=== PATIENT | male | born 1980 | race African-American/Black ===

== ENCOUNTER 2023-11-07 07:22 | Emergency (ER) | payer MEDICAID ==
[~2023-11-07] VITALS: Ht 182.9 cm; Wt 69.0 kg
[2023-11-07 07:35] VITALS: O2SAT 98
[2023-11-07 08:33] LABS: INR 1.2
[2023-11-07 08:38] LABS: DIFFERENTIAL COMMENT 1; MEAN CORPUSCULAR HEMOGLOBIN 32.2 pg (28.0-32.0); MEAN CORPUSCULAR HGB CONC 33.1 g/dL (31.0-37.0); MEAN CORPUSCULAR VOLUME 97.3 fL (80.0-94.0); MEAN PLATELET VOLUME 9.5 fl (7.4-10.4); PLATELET 278 x1000/uL (130-400); RED CELL DISTRIBUTION WIDTH 13.1 % (11.6-14.6); WHITE BLOOD COUNT 12.7 x1000/uL (4.5-11.0)
[2023-11-07 08:41] LABS: HEMATOCRIT. 60.3 % (42.0-52.0)
[2023-11-07 08:43] LABS: AMMONIA < 10 uMol/L (<32)
[2023-11-07] MEDS: SODIUM CHLORIDE 0.9% 1,000 ML IV ONE (08:58)
[2023-11-07 09:05] LABS: LACTIC ACID 3.7 mmol/L (0.4-2.0)
[2023-11-07] MEDS: SODIUM CHLORIDE 0.9% 1000ML BAG (SEPSIS BOLUS) IV ONE (09:22)
[2023-11-07] MEDS: PIPERACILLIN/TAZO 3.375G/50ML 50 ML IV ONE (09:24)
[2023-11-07 09:38] LABS: BG BASE EXCESS 1.3 mmol/L (-2.0-2.0); BG DEOXYHEMOGLOBIN 2.6 % (0.0-5.0); BG FRACTION INSPIRED OXYGEN 21; BG HCO3 ACT 27.8 mmol/L (22.0-26.0); BG METHEMOGLOBIN 2.1 % (0.0-1.5); BG OXYGEN SATURATION 97.3 % (92.0-98.5); BG OXYHEMOGLOBIN 95.3 % (94.0-97.0); BG PCO2 48.9 mmHg (35.0-45.0); BG PH 7.372 (7.350-7.450); BG PO2 87.6 mmHg (75.0-100.0); BG SAMPLE SITE RIGHT BRACHIAL; BG TOTAL HEMOGLOBIN 21.5 g/dL (12.0-18.0); BG VENT MODE ROOM AIR
[2023-11-07 09:39] LABS: PLATELET ESTIMATE NORMAL
[2023-11-07 09:48] LABS: ACETAMINOPHEN < 2 ug/mL (10-30); ALANINE AMINOTRANSFERASE 20 IU/L (10-49); ALBUMIN 4.7 g/dL (3.2-4.8); ASPARTATE AMINOTRANSFERASE 44 IU/L (<34); BILIRUBIN TOTAL 0.9 mg/dL (0.1-1.0); CALCIUM 10.2 mg/dL (8.7-10.4); CARBON DIOXIDE 25 mEq/L (21-32); CREATININE 1.2 mg/dL (0.6-1.3); GLUCOSE 119 mg/dL (70-105); PROTEIN TOTAL 9.1 g/dL (6.0-8.3); TROPONIN I HIGH SENSITIVITY 22 ng/L (3.0-53); UREA NITROGEN BLOOD 41 mg/dL (9-23)
[2023-11-07 09:51] LABS: ETHANOL BLOOD < 10 mg/dL (<10)
[2023-11-07] MEDS: VANCOMYCIN 1G PREMIX 200 ML IV ONE (10:10)
[2023-11-07 10:11] LABS: CHLORIDE 109 mEq/L (98-107); POTASSIUM 4.6 mEq/L (3.5-5.1); SODIUM 147 mEq/L (136-145)
[2023-11-07 11:42] LABS: CLARITY URINE CLOUDY (CLEAR); COLOR URINE DARK YELLOW (YELLOW); GLUCOSE URINE NEGATIVE (NEGATIVE); KETONES URINE TRACE (NEGATIVE); LEUKOCYTE ESTERASE URINE NEGATIVE (NEGATIVE); NITRITE URINE NEGATIVE (NEGATIVE); OCCULT BLOOD URINE 1+ (NEGATIVE); PH URINE 5.5 (4.5-8.0); PROTEIN URINE 1+ (NEGATIVE)
[2023-11-07 12:02] LABS: FINE GRANULAR CASTS URINE 20-30 /lpf
[2023-11-07 12:03] LABS: MUCUS URINE 2+ /lpf (NONE/TRACE)
[2023-11-07 12:04] LABS: WBC URINE 0-2 /hpf (0-2)
[2023-11-07 12:05] LABS: BACTERIA URINE TRACE; SQUAMOUS EPITHELIAL CELL URINE RARE /lpf (RARE/1+)
[2023-11-07 12:06] LABS: COARSE GRANULAR CASTS URINE 0-5 /lpf
[2023-11-07 12:49] LABS: *AMPHETAMINES SCREEN URINE NEGATIVE (NEGATIVE); *BARBITURATES SCREEN URINE NEGATIVE (NEGATIVE); *BENZODIAZEPINES SCREEN URINE NEGATIVE (NEGATIVE); *COCAINE SCREEN URINE NEGATIVE (NEGATIVE); CANNABINOID URINE SCREEN PRESUMPTIVE POSITIVE (NEGATIVE); ECSTASY MDMA SCREEN URINE NEGATIVE (NEGATIVE); METHADONE URINE SCREEN Neg (NEGATIVE); OPIATES URINE SCREEN NEGATIVE (NEGATIVE); PHENCYCLIDINE URINE SCREEN NEGATIVE (NEGATIVE)
[2023-11-07] MEDS ORDERED: SODIUM CHLORIDE 0.45% 250 ML IV ONE (14:15)
[2023-11-07] MEDS ORDERED: CLONIDINE 0.1MG TABLET PO PRN (14:15)
[2023-11-07] MEDS ORDERED: ACETAMINOPHEN 325MG TABLET PO PRN (14:15)
[2023-11-07] MEDS ORDERED: ONDANSETRON HCL 4MG/2ML INJ IV PRN (14:15)
[2023-11-07 14:36] VITALS: BP 115/74; PULSE 66; RESP 15; TEMP 98
[2023-11-07] MEDS ORDERED: ENOXAPARIN 40MG/0.4ML SYR SUBCUT SCH (15:00)
[2023-11-07] MEDS ORDERED: PIPERACILLIN/TAZO 3.375G/50ML 50 ML IV SCH (15:00)
[2023-11-07 15:03] LABS: T4 FREE 1.22 ng/dL (0.89-1.76); THYROID STIMULATING HORMONE 2.22 uIU/mL (0.55-4.78)
[2023-11-08] MEDS ORDERED: PANTOPRAZOLE SODIUM 40 MG/VIAL IV SCH (09:00)
== END 2023-11-07 14:55 | disposition admitted as inpatient to this hospital (09) ==
LOC: ER 07:22 → EDBEDREQTM 10:02 → EDBEDREQ 10:02 → CANBEDREQ 12:34 → ER 14:55
DX: A41.9 Sepsis, unspecified organism (principal); R65.20 Severe sepsis without septic shock; E86.0 Dehydration; E46 Unspecified protein-calorie malnutrition; Z68.20 Body mass index [BMI] 20.0-20.9, adult; Z86.59 Personal history of other mental and behavioral disorders
CPT/HCPCS: 80053; 80305; 81003; 80307; 80329; 80320; 82140; 82533; 84439; 83605; 84443; 85025; 85610; 87040; 87086; 84484; 36415; 84145; 71045; 70450; 82805; 82375; 93005; 96368; 96365; 96366; 99285; 36600; J2543; J3370; J7030; Z7610 ×4; G0480